=== PATIENT | male | born 1960 | race Caucasian/White ===

== ENCOUNTER → 2017-11-24 08:38 | Outpatient (CLI) | payer MEDICAID ==
[2017-11-24 09:40] LABS: BASOPHILS 0.3 % (0-2); EOSINOPHILS 1.9 % (0-7); HEMATOCRIT 45.1 % (42.0-54.0); HEMOGLOBIN 15.3 g/dL (13.5-17.5); IMMATURE GRANULOCYTES 0.1 % (0-5); LYMPHOCYTES 30.4 % (15-50); MCH 31.5 pg (26.0-34.0); MCHC 33.9 g/dL (31.0-37.0); MEAN PLATELET VOLUME 9.5 fL (7.4-10.4); NEUTROPHILS 59.3 % (40-80); PLATELET COUNT 190 10x3/uL (130-400); RBC 4.85 10x6/uL (4.20-6.10); RDW 13.5 % (11.5-14.5); WBC 6.9 10x3/uL (4.8-10.8)
[2017-11-24 09:47] LABS: UDS - AMPHET NEGATIVE QUAL (NEGATIVE); UDS - BARB NEGATIVE QUAL (NEGATIVE); UDS - BENZO NEGATIVE QUAL (NEGATIVE); UDS - COCAINE NEGATIVE QUAL (NEGATIVE); UDS - OPIATE NEGATIVE QUAL (NEGATIVE); UDS - PCP NEGATIVE QUAL (NEGATIVE); UDS - THC NEGATIVE QUAL (NEGATIVE)
[2017-11-24 09:52] LABS: INR 1.09 (0.85-1.17); PROTIME 13.7 SECONDS (11.6-15.0)
[2017-11-24 10:00] LABS: % SATURATION 16 % (15-55); IRON 64 ug/dl (35-150); TOTAL IRON BIND CAPACITY 382 ug/dl (260-445); UNSAT IRON BIND CAPACITY 318 ug/dl (150-375)
[2017-11-24 10:07] LABS: ALBUMIN 3.7 g/dL (3.4-5.0); ANION GAP 11.4 mmol/L (8-16); BILIRUBIN - TOTAL 0.28 mg/dL (0.2-1.3); CALCIUM 8.8 mg/dL (8.5-10.1); CARBON DIOXIDE 29.2 mmol/L (21.0-32.0); CREATININE - SERUM 1.3 mg/dL (0.6-1.3); POTASSIUM - SERUM 4.6 mmol/L (3.5-5.1); PROTEIN - SERUM 8.5 g/dL (6.4-8.2)
[2017-11-25 11:21] LABS: ALPHA FETOPROTEIN -(TUMOR MRK) 7.2 ng/mL (0.0-8.3)
[2017-11-25 12:17] LABS: ANA REFLEX - DIRECT Negative (Negative)
[2017-11-26 15:26] LABS: SMOOTH MUSCLE ABS (ACTIN) 23 Units (0-19)
[2017-11-30 11:13] LABS: HCVGENO - HEP C QUANT 6210000 IU/mL (()); HCVGENO - LOG 10 6.793 (())
== END | disposition home or self-care (01) ==
LOC: D.US 08:30
PROVIDERS: Internal Medicine Gastroenterology
DX: R16.0 Hepatomegaly, not elsewhere classified (principal); R93.8 Abnormal findings on diagnostic imaging of other specified body structures

== ENCOUNTER → 2018-06-16 13:44 | Outpatient (CLI) | payer MEDICAID | END | disposition home or self-care (01) | LOC: D.MRI 13:44 | DX: M25.561 Pain in right knee (principal) ==

== ENCOUNTER → 2018-07-07 06:38 | Outpatient (CLI) | payer MEDICAID | END | disposition home or self-care (01) | LOC: D.MRI 06:38 | DX: M25.861 Other specified joint disorders, right knee (principal) ==

== ENCOUNTER → 2018-08-03 10:11 | Day surgery (SDC) | payer MEDICAID ==
[~2018-08-03 10:11] MED LIST: DICLOFENAC SODI50 MG PO; DILAUDID2 MG PO; NEURONTIN 300300 MG PO; PRINZIDE 20/12.1 TA1 PO; TOPROL XL100 MG PO
[2018-08-03 11:20] LABS: BASOPHILS 0.2 % (0-2); EOSINOPHILS 1.6 % (0-7); HEMATOCRIT 47.2 % (42.0-54.0); HEMOGLOBIN 16.5 g/dL (13.5-17.5); IMMATURE GRANULOCYTES 0.1 % (0-5); LYMPHOCYTES 33.3 % (15-50); MCH 32.3 pg (26.0-34.0); MCV 92.4 fL (80.0-100.0); MONOCYTES 6.7 % (2-11); NEUTROPHILS 58.1 % (40-80); PLATELET COUNT 224 10x3/uL (130-400); RBC 5.11 10x6/uL (4.20-6.10); RDW 12.3 % (11.5-14.5)
[2018-08-03 11:37] LABS: ALBUMIN 4.2 g/dL (3.4-5.0); BILIRUBIN - DIRECT 0.07 mg/dL (0.00-0.30); BILIRUBIN - INDIRECT 0.18 mg/dL (0.00-1.00); BILIRUBIN - TOTAL 0.25 mg/dL (0.2-1.3); PROTEIN - SERUM 8.8 g/dL (6.4-8.2)
[2018-08-05 06:14] VITALS: BMI 27.3
== END | disposition home or self-care (01) ==
LOC: D.LAB 10:11
PROVIDERS: Internal Medicine Gastroenterology
DX: B18.2 Chronic viral hepatitis C (principal)

== ENCOUNTER 2018-08-05 05:56 | Day surgery (SDC) | payer MEDICAID ==
[2018-08-03 11:20] LABS: HEMATOCRIT 47.7 % (42.0-54.0); HEMOGLOBIN 16.6 g/dL (13.5-17.5); MCH 32.2 pg (26.0-34.0); MCHC 34.8 g/dL (31.0-37.0); MCV 92.4 fL (80.0-100.0); MEAN PLATELET VOLUME 10.1 fL (7.4-10.4); RBC 5.16 10x6/uL (4.20-6.10); RDW 12.4 % (11.5-14.5); WBC 9.6 10x3/uL (4.8-10.8)
[2018-08-03 11:31] LABS: ANION GAP 12.5 mmol/L (8-16); CARBON DIOXIDE 30.2 mmol/L (21.0-32.0); CREATININE - SERUM 1.4 mg/dL (0.6-1.3); POTASSIUM - SERUM 3.7 mmol/L (3.5-5.1)
[~2018-08-05] VITALS: Ht 175.3 cm; Wt 83.9 kg
[~2018-08-05 05:56] MED LIST changes: -DILAUDID2 MG PO
[2018-08-05 06:14] VITALS: BP 122/67; Ht 175.3 cm; Wt 83.9 kg
[2018-08-05] MEDS ORDERED: DILAUDID2 MG PO (08:40)
--- NOTE | 2018-08-05 09:15 | NUR ---
PATIENT TOLERATING FULL LIQUIDS, DENIES N/V
--- NOTE | 2018-08-05 09:45 | NUR ---
DISCHARGE PLANNING COMPLETE, WAITING ON CRUTCHES TO BE DELIVERED. IV REMOVED, CATHETER IN TACT. PATIENT ALERT AND ORIENTED X3.
--- NOTE | 2018-08-05 10:49 | NUR ---
MAHSA HAS ARRIVED WITH PATIENTS CRUTCHES.
--- NOTE | 2018-08-06 11:02 | OP ---
PATIENT NAME: JOHN MILTON MEDICAL RECORD: [id number] :56 LOCATION:D.OPS ADMISSION DATE: SURGEON: JALYN NICHOLAS MD DATE OF OPERATION: 08/05/2018 PREOPERATIVE DIAGNOSES: 1. Medial meniscus tear of the right knee. 2. Lateral meniscus tear of the right knee. POSTOPERATIVE DIAGNOSES: 1. Medial meniscus tear of the right knee. 2. Lateral meniscus tear of the right knee. PROCEDURES: 1. Arthroscopic partial meniscectomy, right knee. 2. Arthroscopic partial lateral meniscectomy, right knee. SURGEON: Jalyn Nicholas MD ANESTHESIA: General. INTRAOPERATIVE COMPLICATIONS: None. SUMMARY OF PATHOLOGIC FINDINGS: Consistent with preoperative MRI, the patient had a small Brewer's cyst that was evacuated. They also had a very complex tear of the posterior horn of medial meniscus and more of a radial beak tear of the lateral meniscus. OPERATIVE SUMMARY IN DETAIL: After obtaining the appropriate preoperative orthopedic surgery consent as well as anesthetic consultation, evaluation and clearance, the patient was brought to the operating room and placed on the operating table in supine position. After general laryngeal mask airway was administered, tourniquet was placed about the proximal aspect of the right upper extremity. Right upper extremity was then prepped and draped in routine sterile fashion. The leg was elevated and exsanguinated, tourniquet was inflated to 350 mmHg. Routine inferolateral portal was established followed by superomedial portal and inferomedial portal. The diagnostic arthroscopy did reveal the above findings. Attention was turned first to the medial meniscus. Combination of meniscotome as well as an arthroscopic resector utilized to debride the medial meniscus back to stable meniscal elements leaving a good posterior lateral portion of the medial meniscus as well as an anterior medial portion of the medial meniscus with the portion between resected back to essentially the junctional aspect. 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 While in the lateral compartment, small radial beak tearing was noted; however, the lateral meniscus was stable and did not sublux to be on the midline. Arthroscopic debridement was utilized to take the lateral meniscus back down to stable meniscal elements. Having completed this, the knee was insufflated with 30 mL of 0.25% Marcaine with epinephrine and 40 mg of Depo-Medrol. Arthroscopy portals were closed in routine interrupted fashion using 4-0 Prolene. Sterile dressings were applied. Tourniquet was deflated. The patient was awakened and taken to the recovery room in stable condition. All final needle and sponge counts were correct. TRANSINT:[id number] Voice Confirmation ID: [id number] DOCUMENT ID: [id number] OPERATIVE REPORT [id number] JOHN MILTON MD, JALYN HUFF at 1102 CC: [id number] DICTATION DATE: 08/05/18 0838 COMB SETTER: 08/05/18 1107 [facility] [place] 08/05/18 [facility] [address] [place] [address]
== END 2018-08-05 11:02 | disposition home or self-care (01) ==
LOC: D.OPS 05:56 → D.PAN 11:45
PROVIDERS: Anesthesiology
DX: S83.231A Complex tear of medial meniscus, current injury, right knee, initial encounter (principal); S83.281A Other tear of lateral meniscus, current injury, right knee, initial encounter; M71.21 Synovial cyst of popliteal space [Baker], right knee; Z01.812 Encounter for preprocedural laboratory examination

== ENCOUNTER 2019-09-06 14:48 | Observation (INO) | payer MEDICAID ==
[~2019-09-06] VITALS: Ht 175.3 cm; Wt 81.8 kg
[~2019-09-06 14:48] MED LIST changes: +DILAUDID2 MG PO
[2019-09-06] MEDS ORDERED: BUPRENORPHIN-N1 EACH SL (15:02)
[2019-09-06 16:12] LABS: BASOPHILS 0.1 % (0-2); EOSINOPHILS 1.9 % (0-7); HEMATOCRIT 45.5 % (42.0-54.0); HEMOGLOBIN 15.6 g/dL (13.5-17.5); IMMATURE GRANULOCYTES 0.2 % (0-5); LYMPHOCYTES 19.1 % (15-50); MCH 32.3 pg (26.0-34.0); MCHC 34.3 g/dL (31.0-37.0); MCV 94.2 fL (80.0-100.0); MEAN PLATELET VOLUME 9.8 fL (7.4-10.4); MONOCYTES 9.6 % (2-11); NEUTROPHILS 69.1 % (40-80); PLATELET COUNT 212 10x3/uL (130-400); RBC 4.83 10x6/uL (4.20-6.10); RDW 13.1 % (11.5-14.5); WBC 13.4 10x3/uL (4.8-10.8)
[2019-09-06 16:36] LABS: INR 1.22 (0.85-1.17); PROTIME 15.3 SECONDS (11.6-15.0)
[2019-09-06 16:40] LABS: ANION GAP 11.8 mmol/L (8-16); CALCIUM 8.6 mg/dL (8.5-10.1); CARBON DIOXIDE 31.7 mmol/L (21.0-32.0); CREATININE - SERUM 1.2 mg/dL (0.6-1.3); POTASSIUM - SERUM 3.5 mmol/L (3.5-5.1)
[2019-09-06 16:46] LABS: ALBUMIN 3.3 g/dL (3.4-5.0); BILIRUBIN - TOTAL 0.74 mg/dL (0.2-1.3); PROTEIN - SERUM 7.3 g/dL (6.4-8.2)
[2019-09-06 16:47] VITALS: BP 112/77
[2019-09-06 17:00] LABS: APTT 33.1 SECONDS (22.8-39.4)
--- NOTE | 2019-09-06 17:10 | NUR ---
REPORT CALLED TO TED HARDY
[2019-09-06 18:25] VITALS: BP 110/66
--- NOTE | 2019-09-06 18:25 | NUR ---
TRANSPORTED TO ROOM #1213, CONDITION STABLE
--- NOTE | 2019-09-06 18:30 | NUR ---
RECEIVED TO ROOM 2213 VIA STRETCHER FROM ER. A/O X3. NO C/O AT THIS TIME. SKIN IS INTACT WITHOUT REDNESS. PEDAL PULSES PALPABLE. SUPPER TRAY AT BEDSIDE. DENIES NEEDS.
--- NOTE | 2019-09-06 19:30 | NUR ---
PT ALERT AND ORIENTED. LAYING IN BED WATCHING TV. NO COMPLAINTS. IV TO RIGHT WRIST SL. FLUSHES. NO REDNESS OR SWELLING AT INSERTION SITE. LUNGS CLEAR. SWELLING TO RIGHT LOWER LEG. PEDAL PULSES PALPABLE. DENIES HAVING ANY PAIN OR NEEDS AT THIS TIME. BED IN LOWEST POSITION. SIDE RAILS UP. CALL LIGHT IN REACH. WILL CONTINUE TO MONITOR.
[2019-09-06 20:59] VITALS: BP 99/64
[2019-09-06 23:30] VITALS: BP 99/70; Ht 175.3 cm; Wt 81.8 kg
[2019-09-07 00:58] VITALS: BP 99/63
--- NOTE | 2019-09-07 04:00 | NUR ---
PATIENT RESTING IN BED WITH EYES CLOSED. NO SIGNS OF DISTRESS. BED IN LOWEST POSITION. SIDE RAILS UP. CALL LIGHT IN REACH. WILL CONTINUE TO MONITOR.
[2019-09-07 06:29] VITALS: BP 128/82
[2019-09-07 07:12] LABS: ANA REFLEX - DIRECT Negative (Negative)
[2019-09-07 07:16] VITALS: BP 107/79
[2019-09-07 07:43] LABS: BASOPHILS 0.3 % (0-2); EOSINOPHILS 2.6 % (0-7); HEMATOCRIT 42.1 % (42.0-54.0); HEMOGLOBIN 14.3 g/dL (13.5-17.5); IMMATURE GRANULOCYTES 0.2 % (0-5); MCH 31.7 pg (26.0-34.0); MCV 93.3 fL (80.0-100.0); MEAN PLATELET VOLUME 9.5 fL (7.4-10.4); MONOCYTES 9.9 % (2-11); PLATELET COUNT 196 10x3/uL (130-400); RBC 4.51 10x6/uL (4.20-6.10); RDW 13.4 % (11.5-14.5)
[2019-09-07 07:47] LABS: WBC 9.1 10x3/uL (4.8-10.8)
[2019-09-07 08:03] LABS: ALBUMIN 2.7 g/dL (3.4-5.0); ALKALINE PHOSPHATASE 69 U/L (46-116); ALT (SGPT) 19 U/L (10-68); BILIRUBIN - TOTAL 0.56 mg/dL (0.2-1.3); CALC OSMOLALITY 284 mosm/kg (275-300); CALCIUM 8.3 mg/dL (8.5-10.1); CARBON DIOXIDE 29.9 mmol/L (21.0-32.0); CHLORIDE - SERUM 107 mmol/L (98-107); GLUCOSE 100 mg/dL (74-106); POTASSIUM - SERUM 3.9 mmol/L (3.5-5.1); PROTEIN - SERUM 6.2 g/dL (6.4-8.2); SODIUM 142 mmol/L (136-145); UREA NITROGEN 17 mg/dL (7-18); eGFR NON AFRICAN AMERICAN 81 mL/min (90-120)
[2019-09-07] MEDS ORDERED: ELIQUIS5 MG PO (10:38)
[2019-09-07 13:10] LABS: ACLA - IGG AB <9 GPL U/mL (0-14); ACLA - IGM AB <9 MPL U/mL (0-12)
--- NOTE | 2019-09-07 13:30 | NUR ---
PATIENT IS STABLE AND VSS. PATIENT DENIES ANY NEEDS OR PAIN. ORDERS RECEIVED FOR DC. WRITTEN AND VERBAL INSTRUCTIONS GIVEN. PATIENT VERBALIZED UNDERSTANDING AND SIGNED DC PAPERS. IV DCD WITHOUT DIFFICULTY WITH ENTIRE CATHETER INTACT. PRESSURE DRSG APPLIED. PATIENT IS DC HOME FOR SELF CARE. PATIENT TO FRONT DOOR VIA WC ACCOMPANIED BY FAMILY MEMBER AND STAFF. PATIENT TO PRIVATE VEHICLE DRIVEN BY FAMILY MEMBER .
[2019-09-08 03:07] LABS: ANTITHROMBIN III ACTIVITY 80 % (75-135); PLASMINOGEN ACTIVITY 76 % (70-150)
[2019-09-08 04:07] LABS: LUPUS - INTERPRETATION Comment: (()); LUPUS - THROMBIN TIME 15.3 sec (0.0-23.0); LUPUS - dRVVT 40.3 sec (0.0-47.0); PTT-LA 39.4 sec (0.0-51.9)
[2019-09-08 05:16] LABS: PROTEIN S - FREE 82 % (57-157); PROTEIN S - FUNCTIONAL 74 % (63-140); PROTEIN S - TOTAL 109 % (60-150)
[2019-09-08 16:08] LABS: MITOCHONDRIAL ANTIBODY <20.0 Units (0.0-20.0); PROTEIN C - ANTIGEN 65 % (60-150); PROTEIN C - FUNCTIONAL 76 % (73-180)
== END 2019-09-07 13:30 | disposition home or self-care (01) ==
LOC: D.ER 14:48 → OBSVTIME 16:52 → D.M3 16:52
PROVIDERS: Family Medicine; ADMIT Family Medicine; ATTEND Family Medicine
DX: I82.401 Acute embolism and thrombosis of unspecified deep veins of right lower extremity (principal); G89.29 Other chronic pain; I10 Essential (primary) hypertension; F11.20 Opioid dependence, uncomplicated